=== PATIENT | male | born 1950 | race Caucasian/White ===

== ENCOUNTER 2018-06-05 15:44 | Emergency (ER) | payer BC, MEDICARE ==
[~2018-06-05] VITALS: Ht 188 cm; Wt 100.0 kg
[2018-06-05 16:29] LABS: BASOPHILS # (AUTO) 0.03 x10^3/uL (0-0.1); BASOPHILS % (AUTO) 1 % (0-1); EOSINOPHILS # (AUTO) 0.13 x10^3/uL (0-0.4); EOSINOPHILS % (AUTO) 2 % (1-7); LYMPHOCYTES # (AUTO) 1.42 x10^3/uL (1-3.4); LYMPHOCYTES % (AUTO) 21 % (22-44); MD NO; MEAN CORPUSCULAR HGB CONC 34.4 g/dL (33.2-36.2); MEAN PLATELET VOLUME 7.9 fL (7.4-10.4); MONOCYTES # (AUTO) 0.56 x10^3/uL (0.2-0.8); MONOCYTES % (AUTO) 9 % (2-9); NEUTROPHILS # (AUTO) 4.47 x10^3/uL (1.8-6.8); NEUTROPHILS % (AUTO) 68 % (42-75); PLATELET COUNT 246 x10^3/uL (130-400); RED BLOOD COUNT 4.87 x10^6/uL (4.38-5.82); RED CELL DISTRIBUTION WIDTH 13.4 % (9.4-14.8)
[2018-06-05 16:35] LABS: CHLORIDE 102 mmol/L (98-107)
[2018-06-05 16:36] LABS: ANION GAP 8 mmol/L (5-15); CALCIUM 9.3 mg/dL (8.5-10.1); CREATININE 0.89 mg/dL (0.7-1.3)
[2018-06-05 19:05] VITALS: BP 156/87
== END 2018-06-05 19:21 | disposition home or self-care (01) ==
LOC: ED 18:46
DX: R53.1 Weakness (principal)
CPT/HCPCS: 36415; 71045; 72110; 80048; 82040; 85025; 93005; 99285